=== PATIENT | male | born 1985 | race Two or more races ===

== ENCOUNTER 2020-07-31 21:06 | Emergency (ER) | payer OTHER, SELFPAY ==
--- NOTE | 2020-07-31 | ECG_ITS ---
Test Reason : CHEST PAIN Blood Pressure : / mmHG Vent. Rate : 075 BPM Atrial Rate : 075 BPM P-R Int : 176 ms QRS Dur : 084 ms QT Int : 364 ms P-R-T Axes : 043 032 030 degrees QTc Int : 406 ms Normal sinus rhythm Normal ECG No previous ECGs available Referred By: Emilee Parker Electronically Signed By:BRIJESH ESTRELLA
--- NOTE | ~2020-07-31 | XR_ITS ---
EXAMINATION: XR CHEST CLINICAL INFORMATION: Chest pain COMPARISON: 08/14/2010 TECHNIQUE: Frontal view of the chest was obtained. FINDINGS: No significant abnormality is noted involving the heart, lungs, mediastinum, bony thorax or soft tissues. XR/XR chest 1V IMPRESSION: Unremarkable examination.
[2020-07-31 23:31] VITALS: BP 164/93; PULSE 94; RESP 16; TEMP 36.8; O2SAT 100; BMI 32.5
[2020-08-01] VITALS: BP 125/64; PULSE 75; RESP 12; O2SAT 98
--- NOTE | 2020-08-01 00:18 | ED_ITS ---
HPI - Chest Pain General Chief Complaint: Chest Pain Stated Complaint: chest pain Time Seen by Provider: 08/01/20 00:17 History of Present Illness HPI narrative: 35-year-old male presents today with having chest pain. The pain is mid chest. Started approximately 830. The pain is dull. No specific trigger. It has gone away. Patient denies any history of diabetes, high cholesterol. Positive history of smoking. Positive history of hypertension. Patient from home. Never had a heart attack. Never had a stroke. It is not associated with shortness of breath. No diaphoresis. The pain has gone away. There is no change with position. No stress test done in the past. Related Data Allergies Allergy/AdvReac Type Severity Reaction Status Date / Time No Known Allergies Allergy Unverified 11/04/19 18:10 Review of Systems Review of Systems: Constitutional: No Weight loss, No Fever, No Chills, No Night Sweats, No Fatigue, No Malaise ENT/Mouth: No Hearing loss, No Ear Pain, No Nasal Congestion, No Sinus Pain, No Hoarseness, No sore throat, No Rhinorrhea, No Swallowing Difficulty Eyes: No Eye Pain, No Swelling, No Redness, No Foreign Body, No Discharge, No Vision Changes Cardiovascular: No Chest Pain, No SOB, No Dyspnea on Exertion, No Orthopnea, No Edema, No Palpitations Respiratory: No Cough, No Sputum, No Wheezing, No Smoke Exposure, No Dyspnea Gastrointestinal: No Nausea, No Vomiting, No Diarrhea, No Constipation, No abdominal Pain, No Hematochezia, No Melena Genitourinary: no irregular bleeding, No Dysuria, No Urinary Frequency, No Hematuria, No Urinary Incontinence, No Urgency, No Flank Pain, No Urinary Flow Changes, No Hesitancy Musculoskeletal: No joint pain, No Myalgias, No Joint Swelling Skin: No Skin Lesions, No rash Neuro: No Weakness, No Numbness, No Paresthesias, No Loss of Consciousness, No Dizziness, No Headache Psych: No Anxiety/Panic, No Depression, No SI/HI/AH/VH, No Social Issues, Heme/Lymph: No Bruising, No Bleeding,No Lymphadenopathy Endocrine: No Polyuria, No Polydipsia, No Temperature Intolerance [facility] Past Medical History Attestation statement: The following information was validated with the patient. Social History Social History Alcohol intake: never Smoked in Last 30 Days: No Use of substances other than those prescribed or required for medical reasons: No Advance Directives: No Advance Directives Information Provided: No Physical Exam Vital Signs: Vital Signs: Last Vital Signs Temp 98.3 F 07/31/20 23:31 Pulse 81 08/01/20 02:00 Resp 16 08/01/20 02:00 BP 130/64 08/01/20 02:00 Pulse Ox 97 08/01/20 02:00 Body Mass Index 32.5 Appearance: Alert. Oriented X3. No acute distress. Eyes: Pupils equal, round and reactive to light. ENT: Pharynx normal. Neck: Normal inspection. Neck supple. No lymph nodes noted. No crepitus CVS: Normal heart rate and rhythm. Pulses normal. Normal S1 and S2 Respiratory: No respiratory distress. Breath sounds normal. No Wheezing. No rales Abdomen: Soft and nontender. No rigidity. No distention. good BS x4 Skin: Skin warm and dry. Normal skin color. Normal skin turgor. Extremities: No lower extremity edema. Neurovascular intact to all extremities. No Lacerations. No Rash Neuro: Oriented X 3. No motor deficit. No sensory deficit. Moving all extermities. No slurred speech MDM - Chest Pain MDM Narrative Medical decision making narrative: Chest pain atypical. We will go ahead get a set of cardiac enzymes. Will monitor carefully. Patient's has 2 cardiac risk factor. He is a smoker he has history of hypertension. He is 35 years old. His history is not consistent with ACS. Two sets of cardiac enzyme is negative. Patient's heart score is less than 3. Will discharge patient home. Close follow-up on an outpatient basis. Chest x-ray showed no pneumonia or pneumothorax. Patient history not consistent with a PE. Lab Data Result diagrams: 08/01/20 00:17 08/01/20 00:17 Labs: Lab Results 08/01/20 08/01/20 08/01/20 Range/Units 00:17 00:17 00:17 WBC 7.1 (4.8-10.8) X10*3/uL RBC 4.83 (4.60-5.80) X10*6/uL Hgb 14.7 (14.0-18.0) g/dl Hct 43.4 (42-52) % MCV 89.9 (80-98) fL MCH 30.4 (27.0-33.0) pg MCHC 33.9 (31.0-36.0) g/dl RDW 12.8 (11.0-16.0) % Plt Count 239 (160-400) X10*3/uL MPV 11.1 (9.4-12.4) fL Immature Gran % (Auto) 0.3 (0.0-0.4) % Neut % (Auto) 50.8 (45-73) % Lymph % (Auto) 34.7 (20-40) % Valencia % (Auto) 10.3 (2-11) % Eos % (Auto) 3.8 (0-4) % Baso % (Auto) 0.1 (0-2) % Lymph # (Auto) 2.5 (1.2-4.9) X10*3/uL Valencia # (Auto) 0.7 (0.1-1.2) X10*3/uL Eos # (Auto) 0.3 (0.0-0.4) X10*3/uL Baso # (Auto) 0.0 (0.0-0.2) X10*3/uL Abs Immat Gran (auto) 0.02 (0.00-0.03) X10*3/uL Absolute Neuts (auto) 3.6 (2.0-8.3) X10*3/uL Absolute Nucleated RBC 0.000 (0.0-0.012) X10*3/uL Nucleated RBC % (auto) 0.0 (0.0-0.2) /100WBC Sodium 140 (135-145) mmol/L Potassium 4.3 (3.3-5.1) mmol/L Chloride 105 (96-108) mmol/L Carbon Dioxide 24 (22-29) mmol/L Anion Gap 15 (12-20) BUN 14 (9-16) mg/dL Creatinine 0.76 (0.5-1.4) mg/dL Estim Creat Clear Calc 137.7 Estimated GFR > 60 Random Glucose 101 (60-115) mg/dL Calcium 9.1 (8.4-10.2) mg/dL Total Bilirubin 0.3 (0.0-1.0) mg/dL AST 23 (5-37) U/L ALT 30 (0-40) U/L Alkaline Phosphatase 83 (39-117) U/L Troponin I High Sens < 3.5 (<3.5-35.0) ng/L Total Protein 7.2 (6.5-8.0) g/dL Albumin 4.2 (3.5-5.0) g/dL 08/01/20 Range/Units 02:58 WBC (4.8-10.8) X10*3/uL RBC (4.60-5.80) X10*6/uL Hgb (14.0-18.0) g/dl Hct (42-52) % MCV (80-98) fL MCH (27.0-33.0) pg MCHC (31.0-36.0) g/dl RDW (11.0-16.0) % Plt Count (160-400) X10*3/uL MPV (9.4-12.4) fL Immature Gran % (Auto) (0.0-0.4) % Neut % (Auto) (45-73) % Lymph % (Auto) (20-40) % Valencia % (Auto) (2-11) % Eos % (Auto) (0-4) % Baso % (Auto) (0-2) % Lymph # (Auto) (1.2-4.9) X10*3/uL Valencia # (Auto) (0.1-1.2) X10*3/uL Eos # (Auto) (0.0-0.4) X10*3/uL Baso # (Auto) (0.0-0.2) X10*3/uL Abs Immat Gran (auto) (0.00-0.03) X10*3/uL Absolute Neuts (auto) (2.0-8.3) X10*3/uL Absolute Nucleated RBC (0.0-0.012) X10*3/uL Nucleated RBC % (auto) (0.0-0.2) /100WBC Sodium (135-145) mmol/L Potassium (3.3-5.1) mmol/L Chloride (96-108) mmol/L Carbon Dioxide (22-29) mmol/L Anion Gap (12-20) BUN (9-16) mg/dL Creatinine (0.5-1.4) mg/dL Estim Creat Clear Calc Estimated GFR Random Glucose (60-115) mg/dL Calcium (8.4-10.2) mg/dL Total Bilirubin (0.0-1.0) mg/dL AST (5-37) U/L ALT (0-40) U/L Alkaline Phosphatase (39-117) U/L Troponin I High Sens < 3.5 (<3.5-35.0) ng/L Total Protein (6.5-8.0) g/dL Albumin (3.5-5.0) g/dL Discharge Plan Discharge Clinical Impression: Chest pain Patient Disposition: Home, Self-Care Instructions: Chest Pain (ED) Referrals: Michelle Romo MD [Primary Care Provider] - 2 days
[2020-08-01 00:22] LABS: MANUAL DIFF FLAG NO
[2020-08-01 00:24] LABS: Basophils Percent Auto 0.1 % (0-2); Eosinophils Absolute Auto 0.3 X10*3/uL (0.0-0.4); Eosinophils Percent Auto 3.8 % (0-4); Hematocrit 43.4 % (42-52); Hemoglobin 14.7 g/dl (14.0-18.0); Imm Gran Abs Auto 0.02 X10*3/uL (0.00-0.03); Imm Gran Pct Auto 0.3 % (0.0-0.4); Lymphocytes Absolute Auto 2.5 X10*3/uL (1.2-4.9); Lymphocytes Percent Auto 34.7 % (20-40); Mean Corpuscular HGB Conc 33.9 g/dl (31.0-36.0); Mean Corpuscular Hemoglobin 30.4 pg (27.0-33.0); Mean Corpuscular Volume 89.9 fL (80-98); Mean Platelet Volume 11.1 fL (9.4-12.4); Monocytes Absolute Auto 0.7 X10*3/uL (0.1-1.2); Monocytes Percent Auto 10.3 % (2-11); Neutrophils Absolute Auto 3.6 X10*3/uL (2.0-8.3); Neutrophils Percent Auto 50.8 % (45-73); Platelet Count 239 X10*3/uL (160-400); Red Blood Count 4.83 X10*6/uL (4.60-5.80); Red Cell Distribution Width 12.8 % (11.0-16.0); White Blood Count 7.1 X10*3/uL (4.8-10.8)
[2020-08-01] MEDS: Aspirin 81 MG TAB.CHEW 324 MG PO (00:31)
--- NOTE | 2020-08-01 00:39 | PC.NURSE ---
MEDICATED PER EMAR, X-RAY TAKEN AT BEDSIDE.
[2020-08-01 00:47] LABS: Troponin-I High Sensitivity < 3.5 ng/L (<3.5-35.0)
[2020-08-01 00:53] LABS: Alanine Aminotransferase 30 U/L (0-40); Albumin Level 4.2 g/dL (3.5-5.0); Alkaline Phosphatase 83 U/L (39-117); Anion Gap 15 (12-20); Aspartate Amino Transferase 23 U/L (5-37); Bilirubin Total 0.3 mg/dL (0.0-1.0); Blood Urea Nitrogen 14 mg/dL (9-16); Calcium 9.1 mg/dL (8.4-10.2); Carbon Dioxide 24 mmol/L (22-29); Chloride 105 mmol/L (96-108); Creatinine Clr Calc Pharmacy 137.7; Estimated Glomerular Filt Rate > 60; Glucose Random 101 mg/dL (60-115); Potassium 4.3 mmol/L (3.3-5.1); Sodium 140 mmol/L (135-145); Total Protein 7.2 g/dL (6.5-8.0)
[2020-08-01 02:00] VITALS: BP 130/64; PULSE 81; RESP 16; O2SAT 97
[2020-08-01 03:29] LABS: Troponin-I High Sensitivity < 3.5 ng/L (<3.5-35.0)
== END 2020-08-01 04:22 | disposition home or self-care (01) ==
PROVIDERS: Emergency Provider Emergency Medicine Emergency Medical Services; PCP Internal Medicine
DX: R07.9 Chest pain, unspecified (principal); I10 Essential (primary) hypertension; F17.200 Nicotine dependence, unspecified, uncomplicated
CPT/HCPCS: 36415; 71045; 80053; 84484; 85025; 93005; 99283; 99285

== ENCOUNTER → 2020-09-11 08:47 | Outpatient (REF) | payer OTHER, SELFPAY ==
--- NOTE | 2020-09-11 09:30 | CA_ITS ---
Transthoracic Echocardiogram Patient (Last, First, Middle): Prabhu Young, Gender: Male Date of : 1985 Age: 35 Procedure Date: 09/11/2020 Procedure Type: Transthoracic Echocardiogram Location: OP Height: 165.1 cm Weight: 86.18 kg BSA: 1.94 m2 Heart Rate: bpm BP: 130 / 82 mmHg Referring MD: Michelle Romo MD Symptoms: R07.89 OTHER CHEST PAIN Study Quality: Good ECG Rhythm: Sinus Conclusions: - The left ventricular systolic function is normal. The visually estimated ejection fraction is between 65-70%. - No obvious valvular pathology seen on this study. Findings Left Ventricle Normal left ventricular cavity size. There is normal left ventricular wall thickness. The left ventricular systolic function is normal. The visually estimated ejection fraction is between 65-70%. There is no evidence of regional wall motion abnormalities. Diastolic function is normal for age. Right Ventricle Normal right ventricular cavity size and systolic function. Atria Both atria are normal in size. Aortic Valve There is a normal trileaflet aortic valve. There is no aortic valve stenosis. There is no aortic valve regurgitation. Mitral Valve The mitral valve appears normal. There is trace mitral valve regurgitation. There is no mitral valve stenosis. Pulmonic Valve The pulmonic valve was not well visualized. There is trace pulmonic valve regurgitation. Tricuspid Valve Normal tricuspid valve structure. There is trace tricuspid valve regurgitation. The pulmonary artery systolic pressure is normal. Great Vessels The aortic annulus, sinuses of valsalva, asc aorta, and aortic arch are normal in size. Venous The inferior vena cava is normal in size and collapses greater than 50% with inspiration. Pericardium/Pleural There is no evidence of pericardial effusion. Prior Study Comparison No prior study available for comparison. Recommendations, Care & Conclusions No obvious valvular pathology seen on this study. Measurements 2D Linear Measurements RVIDd: 2.78 RVIDd Index: 1.43 IVSd: 1.05 0.6-0.9/0.6-1.0 cm LVIDd: 5.29 3.9-5.3/4.2-5.9 cm LVIDd Index: 2.73 2.4-3.2/2.2-3.1 cm/m2 LVIDs: 2.82 2.0-3.6 cm LVPWd: 1.00 0.7-1.1 cm Ao Root: 2.60 2.1-3.5 cm LA Diam: 3.50 2.7-3.8/3.0-4.0 cm LAIDs Index: 1.80 1.5-2.3 cm/m2 LV Mass: 257.31 67-162/88-224 g LV Mass Index: 132.63 43-95/49-115 g/m2 LVOT Diam: 2.30 3.0+(-)1.3 cm 2D Systolic Function EF 4C: 58.50 >55% EF 2C: 71.90 >55% EF BiP: 65.10 >55% Mitral Valve MV Pk E: 0.71 MV PK A: 0.51 MV Decel Time: 164.00 E/A: 1.40 E'Lateral: 9.46 E'Medial: 9.03 E/E' Med: 7.80 E/E' Lat: 7.50 Aortic Valve AoV Pk Nic: 1.71 AoV Mn Nic: 1.24 AoV VTI: 0.25 AoV Pk Grad: 12.00 Aov Mn Grad: 7.00 MOHIT Cont.VTI: 3.73 LVOT LVOT Pk Nic: 1.56 LVOT Mn Nic: 1.07 LVOT VTI: 0.22 LVOT Pk Grad: 10.00 LVOT Mn Grad: 5.00 LVOT Diam: 2.30 LVOT Area: 4.15 Diastolic Function MV Pk E: 0.71 MV Pk A: 0.51 E/A: 1.40 E'Medial: 9.03 E/E' Med: 7.80 E' Laterial: 9.46 E/E' Lat: 7.50 Right Ventricle TAPSE (mm): 2.14 Tricuspid Valve TR Pk Nic: 2.20 TR Pk Grad: 19.00 RA Press: 3.00 RVSP: 22.00 Great Vessels Aorta Ao Root-2D: 2.60 2.0-3.7 cm Ao Asc: 2.90 2.1-3.4 cm Ao Arch: 2.50 Updated in Other Vendor System with Status of Final Anastacio Nunn MD electronically signed on 09/11/2020 12:51:59 PM with status of Final
== END ==
LOC: HO.CARD 08:47
PROVIDERS: Visit Provider Internal Medicine
DX: R07.89 Other chest pain (principal)
CPT/HCPCS: 93306

== ENCOUNTER 2021-05-14 09:43 | Outpatient (REF) | payer OTHER, SELFPAY ==
--- NOTE | ~2021-05-14 | XR_ITS ---
EXAMINATION: XR CHEST CLINICAL INFORMATION: Chest pain COMPARISON: Previous exam July 2020 TECHNIQUE: 2 views of the chest were obtained. FINDINGS: The cardiac and mediastinal contours are normal. There is a 7 mm nodule projects over the right upper lobe and posterior right 6 rib. This is similar to March 2019 exam. This is not appreciated on the other exams. It is uncertain whether this represents a pulmonary nodule could represent something on the patient's skin or in sclerotic lesion in the bone. The lungs are otherwise clear. There is no pleural effusion or pneumothorax. Bony structures are unremarkable. XR/XR chest 2V IMPRESSION: Question 7 mm right upper lobe nodule. This could be better evaluated with follow-up chest CT.
== END 2021-05-14 09:44 | disposition home or self-care (01) ==
LOC: HO.XRAY 09:43
PROVIDERS: Absent Provider Internal Medicine; PCP Internal Medicine; Visit Provider Family Medicine
DX: R07.89 Other chest pain (principal)
CPT/HCPCS: 71046

== ENCOUNTER 2021-05-29 07:30 | Outpatient (REF) | payer OTHER, SELFPAY ==
--- NOTE | ~2021-05-29 | CT_ITS ---
EXAMINATION: CT CHEST WITH CONTRAST CLINICAL INFORMATION: 36-year-old male with solitary pulmonary nodule COMPARISON: Chest radiograph from 05/14/2021 TECHNIQUE: Multidetector volumetric CT imaging of the chest was obtained after the administration of 65 mL of Omnipaque 350 intravenous contrast without immediate adverse reactions. Axial MIP volume rendering provided. Sagittal and coronal reformatted images were obtained. This CT examination was performed using dose optimization techniques as appropriate, variously including the following: *Automated exposure control *Adjustment of mA and/or kV according to patient size (this includes techniques or standardized protocols for targeted exams where dose is matched to indication/reason for exam; i.e. extremities or head) *Use of iterative reconstruction technique DLP: 151 mGy-cm FINDINGS: HEAD GROWER: There is right upper lobe nodule seen LUNGS: There is 0.7 x 0.7 x 0.7 cm heavily calcified right upper lobe nodule consistent with the appearance of calcified granuloma. The rest of lungs are clear. MEDIASTINUM: There is small amount of residual thymic tissue is, normal variant. There is no mediastinal or hilar lymphadenopathy. There is small calcified nodules measured approximately 2 mm in the right hilum Heart is not enlarged and there is no pericardial effusion PLEURA: There is no pleural effusion. No pleural mass or thickening. AXILLA: No lymphadenopathy. UPPER ABDOMEN: Liver is of low attenuation due to hepatic steatosis. The area of fatty sparing adjacent to the gallbladder fossa. OSSEOUS STRUCTURES: Unremarkable. 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 Hepatic steatosis Fleischner guidelines were followed.
[2021-05-29] MEDS: iohexoL 350 MG/ML 100 ML INFUS..BTL IV (08:14)
== END 2021-05-29 07:31 | disposition home or self-care (01) ==
LOC: HO.CT 07:30
PROVIDERS: PCP Internal Medicine; Visit Provider Family Medicine
DX: R91.1 Solitary pulmonary nodule (principal)
CPT/HCPCS: 71260; Q9967

== ENCOUNTER 2021-07-12 10:19 | Outpatient (REF) | payer OTHER, SELFPAY ==
[2021-07-12 11:44] LABS: MANUAL DIFF FLAG NO
[2021-07-12 12:07] LABS: Basophils Percent Auto 0.1 % (0-2); Eosinophils Absolute Auto 0.1 X10*3/uL (0.0-0.4); Eosinophils Percent Auto 1.1 % (0-4); Hematocrit 46.2 % (42.0-52.0); Hemoglobin 15.7 g/dl (14.0-18.0); Imm Gran Abs Auto 0.04 X10*3/uL (0.00-0.03); Imm Gran Pct Auto 0.5 % (0.0-0.4); Lymphocytes Absolute Auto 1.4 X10*3/uL (1.2-4.9); Lymphocytes Percent Auto 18.6 % (20-40); Mean Corpuscular Hemoglobin 30.3 pg (27.0-33.0); Mean Platelet Volume 11.5 fL (9.4-12.4); Monocytes Absolute Auto 0.5 X10*3/uL (0.1-1.2); Monocytes Percent Auto 6.8 % (2-11); Neutrophils Absolute Auto 5.3 x10*3/uL (2.0-8.3); Neutrophils Percent Auto 72.9 % (45-73); Platelet Count 252 X10*3/uL (160-400); Red Blood Count 5.19 X10*6/uL (4.60-5.80); Red Cell Distribution Width 12.3 % (11.0-16.0); White Blood Count 7.3 X10*3/uL (4.8-10.8)
[2021-07-12 12:48] LABS: Erythrocyte Sedimentation Rate 6 MM/HR (0-15)
[2021-07-14 15:07] LABS: TS Negative Control Passed; TS Panel A 0; TS Panel B 0; TS Positive Control Passed; TSpotTB Negative (Negative)
== END 2021-07-12 10:20 | disposition home or self-care (01) ==
LOC: HO.LAB 10:19
PROVIDERS: PCP Internal Medicine; Visit Provider Hospitalist
DX: Z11.1 Encounter for screening for respiratory tuberculosis (principal); R91.1 Solitary pulmonary nodule; J45.20 Mild intermittent asthma, uncomplicated; R01.1 Cardiac murmur, unspecified
CPT/HCPCS: 36415; 85025; 85652; 86481; 99202

== ENCOUNTER → 2022-01-03 09:40 | Outpatient (BNVA) | payer OTHER, SELFPAY | PROVIDERS: PCP Internal Medicine; Visit Provider Hospitalist | DX: J45.20 Mild intermittent asthma, uncomplicated (principal); R91.1 Solitary pulmonary nodule | CPT/HCPCS: 99212 ==

== ENCOUNTER 2022-09-18 09:28 | Outpatient (AMB) | payer OTHER, SELFPAY ==
[2022-09-18 09:39] VITALS: BP 144/80; PULSE 80; BMI 34.4
--- NOTE | 2022-09-18 09:39 | A.OFFVIS_ITS ---
Intake Vital Signs 09/18/22 09:39 Height 5 ft 5 in Weight 207 lb BMI 34.4 BP 144/80 H Blood Pressure Location Rt brachial Position Sitting Pulse 80 Intake Visit Reasons: umbilical hernia Intake Note: This patient presents for an assessment for umbilical hernia. Patient c/o; describes discomfort when lifting, bulge, denies pain. 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 He has felt this lump on his umbilicus for about 4 months now. He says that this had become bigger. 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 He denies any GI complaints. [facility] Medical History (Updated 09/18/22 @ 10:09 by Oliverio Hoover MD) Asthma BMI 34.0-34.9,adult Cardiac murmur Pulmonary nodule Umbilical hernia Surgical History (Updated 09/18/22 @ 09:57 by BISHOP Medina) No pertinent past surgical history Family History (Updated 09/18/22 @ 09:57 by BISHOP Medina) Other Ovarian cancer Throat cancer Social History Alcohol intake: never Patient Tobacco Use Status: Former Tobacco user Tobacco use type: Cigarette Years Smoked: 20 years Review of Systems Const Denies chills and Denies fever(s) Card Denies chest pain, Denies dyspnea and Denies dyspnea on exertion Resp Denies cough, Denies dyspnea and Denies dyspnea on exertion GI Denies hematochezia and Denies change in bowel habits Denies hematuria and Denies difficulty urinating Musc Denies back pain and Denies limited range of motion Neuro Denies focal weakness and Denies convulsions Psych Denies depression and Denies mood swings Physical Exam Vital Signs: Last Vital Signs Pulse 80 09/18/22 09:39 BP 144/80 H 09/18/22 09:39 BMI result Body Mass Index 34.4 Const Other: Appears overweight General: comfortable and no acute distress Orientation/consciousness: patient oriented x3 Neck Neck: Yes no lymphadenopathy Resp Auscultation: clear to auscultation bilaterally Cardio Rhythm: regular rhythm GI Other: Umbilical hernia, about 2 cm, reducible but mildly tender Palpation (GI): Soft to palpation, nontender and no guarding Neuro General: patient oriented x3 Assessment & Plan Assessment & Plan (1) Umbilical hernia: Code(s): K42.9 - Umbilical hernia without obstruction or gangrene Plan: He has an umbilical hernia as described above. He describes symptoms as well. I explained him the technique of repair with possible mesh placement. I reviewed the risks including but not limited to bleeding, infections, bowel injury, recurrence, postop pain, as well as the benefits and alternatives. He understands and wants to proceed. Coding Level of Care Code New Pt Level 3 (60969) Diagnoses Umbilical hernia K42.9
== END 2022-09-18 10:19 | disposition home or self-care (01) ==
PROVIDERS: PCP Internal Medicine; Visit Provider Surgery
DX: K42.9 Umbilical hernia without obstruction or gangrene (principal)
CPT/HCPCS: 99203

== ENCOUNTER → 2022-09-18 09:28 | Outpatient (BNVA) | payer OTHER, SELFPAY | PROVIDERS: PCP Internal Medicine; Visit Provider Surgery ==

== ENCOUNTER 2022-10-11 08:24 | Day surgery (SDC) | payer OTHER, SELFPAY ==
[2022-10-09 12:50] VITALS: BMI 33.4
--- NOTE | 2022-10-10 11:51 | HO.ANESPROP2 ---
Documented by User: Loan Ahuja NP 10/10/22 11:53 HPI - Anesthesia Eval Consult details Narrative: 37yo M for Hernia Repair Umbilical with poss mesh PMFSH Active Problems Active Problems: All Active Problems (Updated 09/18/22 @ 10:09 by Oliverio Hoover MD) Umbilical hernia (Acute) BMI 34.0-34.9,adult (Acute) Cardiac murmur (Acute) Asthma (Acute) Pulmonary nodule (Acute) Past Medical History Medical History (Updated 09/18/22 @ 10:09 by Oliverio Hoover MD) Asthma BMI 34.0-34.9,adult Cardiac murmur Pulmonary nodule Umbilical hernia Family History Family History (Updated 09/18/22 @ 09:57 by BISHOP Medina) Other Ovarian cancer Throat cancer Surgical History Surgical History (Updated 09/18/22 @ 09:57 by BISHOP Medina) No pertinent past surgical history Social History Social History Alcohol intake: never Patient Tobacco Use Status: Former Tobacco user Tobacco use type: Cigarette Years Smoked: 20 years Are you DNR?: No Advance Directives: No Advance Directives Information Provided: Yes Meds Allergies Allergy/AdvReac Type Severity Reaction Status Date / Time No Known Allergies Allergy Unverified 09/18/22 09:56 [No Known Allergies*] Home Medications Medication Instructions Recorded Confirmed Last Taken Type amlodipine 10 mg tablet 10 mg PO DAILY 07/12/21 10/09/22 Unknown History hydrochlorothiazide 25 mg tablet 25 mg PO DAILY 07/12/21 10/09/22 Unknown History losartan 50 mg tablet 50 mg PO DAILY 07/12/21 10/09/22 Unknown History Exam Exam Date and Time: October 10, 2022 1151 Height,Weight and Vital Signs: Height 5 ft 5 in Weight 91.172 kg Narrative Narrative: ECHO 2020 Assessment and Plan Assessment Anesthesia Assessment: Chart Reviewed Documented by User: Lion Hilario MD 10/11/22 11:30 [facility] Past Medical History Medical History (Updated 09/18/22 @ 10:09 by Oliverio Hoover MD) Asthma BMI 34.0-34.9,adult Cardiac murmur Pulmonary nodule Umbilical hernia Family History Family History (Updated 09/18/22 @ 09:57 by BISHOP Medina) Other Ovarian cancer Throat cancer Family history of problems with anesthesia: No Surgical History Surgical History (Updated 09/18/22 @ 09:57 by BISHOP Medina) No pertinent past surgical history History of Problems with Anesthesia: No Social History Social History Alcohol intake: never Patient Tobacco Use Status: Former Tobacco user Tobacco use type: Cigarette Years Smoked: 20 years Are you DNR?: No Advance Directives: No Advance Directives Information Provided: Yes Meds Allergies Allergy/AdvReac Type Severity Reaction Status Date / Time No Known Allergies Allergy Unverified 09/18/22 09:56 [No Known Allergies*] Home Medications Medication Instructions Recorded Confirmed Last Taken Type amlodipine 10 mg tablet 10 mg PO DAILY 07/12/21 10/09/22 Unknown History hydrochlorothiazide 25 mg tablet 25 mg PO DAILY 07/12/21 10/09/22 Unknown History losartan 50 mg tablet 50 mg PO DAILY 07/12/21 10/09/22 Unknown History Exam Airway Mallampati Class: I TM Dist: >3cm Neck ROM: Full Loose/Missing/Broken Teeth: No Heart: ok Lungs: ok Assessment and Plan Assessment Anesthesia Assessment: Anesthesia Plan Discussed Final Anesthetic Review Family History of Problems with Anesthesia: No History of Problems with Anesthesia: No NPO: Yes ASA Class: II Final Preanesthetic Review: No Changes in Pt Med Stat, Meds/Allgs Chart Reviewed, Consent Obtained/Reviewed and Anes Risks/Benef Reviewed Patient Risk: Low Procedure Risk: Low Anesthetic Plan Anesthetic Plan: GA and Agree w/ Assess. and Plan Disposition: Standard PACU
[2022-10-11 09:20] VITALS: BP 149/84; PULSE 80; RESP 20; TEMP 36.6; O2SAT 98
[2022-10-11] MEDS: Lactated Ringers 1,000 ML 100 ML IVCONT (09:27)
--- NOTE | 2022-10-11 10:39 | MHC.SHP ---
Pre-Procedural Eval Section A Date of Service: 10/11/22 The patient is an INPATIENT: No Changes since office visit: No Cold of Flu in the past 2 weeks, No New Medical Problems, No Changes in Medication and No Patient answered all questions The History & Physical has been completed within 30 days and I have reviewed it.: Yes Section B Chief Complaint: Umbilical hernia without obstruction or gangrene Allergies: Allergies Allergy/AdvReac Type Severity Reaction Status Date / Time No Known Allergies Allergy Unverified 09/18/22 09:56 [No Known Allergies*] Plan I have reviewed the history and physical and performed a pertinent physical examination on my patient. No changes have occurred unless specified. Time Spent With Patient Time: Total time managing care of this patient today ____ minutes.
--- NOTE | 2022-10-11 11:32 | P.OP_ITS ---
Operative Note Operative Note Date of Service: 10/11/22 Narrative: Preop diagnosis: Umbilical hernia Postop diagnosis: Umbilical hernia Procedure: Repair of umbilical hernia with Ventralex mesh Surgeon: Oliverio Hoover MD restaurant assistant manager: IKE Glass Patient is a 37-year-old male who was seen in the office because of a small umbilical hernia. He understood the technique of repair. He was aware of the risks, benefits, and alternatives He was brought to the operating room. He was placed supine under general anesthesia via laryngeal mask airway. The abdomen was prepped and draped in this was sterile fashion. A surgical time-out was done. The patient received cefazolin 2 g IV preoperatively I infiltrated the finesse umbilical area with lidocaine 1%. I made a transverse supraumbilical curvilinear incision using blade 15. And this was carried down with electrocautery through the full-thickness of the skin subcutaneous fat he will eventually lysed hernia. This was fat containing. I sharply dissected the hernia contents off of the rest of subcutaneous layer down to the fascia. I divided adhesions to the fascia until I was able to completely reduce this hernia. The hernia defect was about 1 cm in size. This defect was dissected and well-defined. The margins underneath were clear. I positioned a small- sized Ventralex mesh underneath the hernia. I secured the Prolene straps of the mesh to the fascial edges with Prolene 2 sutures. The mesh had been flattened with good overlap. I closed the umbilical defect with a [id number] Maxon 1 stitch on the fascia. The subcutaneous layer was reapposed with Polysorb 3-0 interrupted sutures. Closure was achieved with pulse of 4-0 subcuticular running sutures. The area was infiltrated with Marcaine 0.5% for postop PARAG. Dressings were applied. The procedure was completed The patient tolerated procedure well. There were no immediate complications. Initial and final counts sponges and instruments were correct. Estimated blood loss about 5 cc The patient was extubated without difficulty and transferred to the recovery with stable vital signs.
[2022-10-11 11:53] VITALS: BP 131/78; PULSE 92; RESP 14; TEMP 36.3; O2SAT 93
[2022-10-11 11:58] VITALS: BP 135/75; PULSE 77; RESP 16; O2SAT 94
[2022-10-11 12:03] VITALS: BP 126/83; PULSE 81; RESP 16; O2SAT 96
[2022-10-11 12:08] VITALS: BP 116/79; PULSE 73; RESP 16; O2SAT 96
[2022-10-11 12:23] VITALS: BP 127/88; PULSE 81; RESP 16; TEMP 36.4; O2SAT 96
== END 2022-10-11 12:50 | disposition home or self-care (01) ==
PROVIDERS: PCP Internal Medicine; Visit Provider Surgery
PROC: (CPT 49591; principal; 2022-10-11 10:50)
DX: K42.9 Umbilical hernia without obstruction or gangrene (principal); R91.1 Solitary pulmonary nodule; R01.1 Cardiac murmur, unspecified; J45.909 Unspecified asthma, uncomplicated; Z79.899 Other long term (current) drug therapy; Z87.891 Personal history of nicotine dependence
CPT/HCPCS: 49591; C1781; J0690; J1885; J2250; J2405; J2795; J3010

== ENCOUNTER → 2022-10-11 08:24 | Outpatient (BNV) | payer OTHER, SELFPAY | PROVIDERS: PCP Internal Medicine; Visit Provider Surgery | DX: K42.9 Umbilical hernia without obstruction or gangrene (principal) | CPT/HCPCS: 49591 ==

== ENCOUNTER 2022-10-28 08:01 | Outpatient (AMB) | payer SELFPAY ==
--- NOTE | 2022-10-28 08:06 | MHC.OFFVIS ---
Intake Vital Signs 10/28/22 08:13 Weight 206 lb BP 135/90 H Blood Pressure Location Rt brachial Position Sitting Pulse 79 Intake Visit Reasons: S/P Exc umbilical hernia w/ poss mesh Intake Note: This patient presents for a post-op assessment status post umbilical hernia repair with mesh. Patient c/o; reports no complaints at this time pertaining to surgery. Nursing Scheduler Required: No Accompanied by: Self / Same As Patient Allergies No Known Allergies [No Known Allergies*] Allergy (Unverified 10/28/22 08:14) HPI S/P Exc umbilical hernia w/ poss mesh HPI Details He underwent repair of an umbilical hernia with mesh last 10/11/2022. He tolerated the procedure well. He currently denies significant complaints. He says he feels well overall. [facility] Medical History Umbilical hernia BMI 34.0-34.9,adult Cardiac murmur Asthma Pulmonary nodule Surgical History History of umbilical hernia repair (~10/11/22) Family History Other Ovarian cancer Throat cancer Social History Alcohol intake: never Patient Tobacco Use Status: Former Tobacco user Tobacco use type: Cigarette Years Smoked: 20 years Review of Systems Const Denies chills and Denies fever(s) Card Denies chest pain, Denies dyspnea and Denies dyspnea on exertion Resp Denies cough, Denies dyspnea and Denies dyspnea on exertion GI Denies hematochezia and Denies change in bowel habits Denies hematuria and Denies difficulty urinating Musc Denies back pain and Denies limited range of motion Neuro Denies focal weakness and Denies convulsions Psych Denies depression and Denies mood swings Physical Exam Vital Signs: Last Vital Signs Pulse 79 10/28/22 08:13 BP 135/90 H 10/28/22 08:13 Const General: comfortable and no acute distress Resp Effort & Inspection: normal respiratory effort GI Other: Incision well healed, not infected, repair intact Palpation (GI): Soft to palpation and nontender Assessment & Plan Assessment & Plan (1) Umbilical hernia: Code(s): K42.9 - Umbilical hernia without obstruction or gangrene Plan: Status post repair with mesh. He is doing very well postoperatively. The repair site is intact. His incision is well healed. He was advised to avoid any lifting more than 20 lb for about 2 more weeks. He can follow up on a p.r.n. basis. Coding Level of Care Code Global (87494) Diagnoses Umbilical hernia K42.9
[2022-10-28 08:13] VITALS: BP 135/90; PULSE 79
== END 2022-10-28 08:33 | disposition home or self-care (01) ==
PROVIDERS: PCP Internal Medicine; Visit Provider Surgery
DX: K42.9 Umbilical hernia without obstruction or gangrene (principal)
CPT/HCPCS: 99213

== ENCOUNTER → 2022-10-28 08:01 | Outpatient (BNVA) | payer OTHER, SELFPAY | PROVIDERS: PCP Internal Medicine; Visit Provider Surgery ==

== ENCOUNTER 2025-01-07 08:27 | Outpatient (REF) | payer SELFPAY ==
--- OUTSIDE RECORDS SUMMARY | 2025-01-07 08:30 | XMS_ITS | Encounter Summary ---
Author Organization [employer] Address [address] [place] [address] [address] [address] Care Team Providers Care Java Web User Interface Developer Name Role Phone Michelle Romo MD Primary Care Provider [phone]- [phone] Reason for Visit * Reason Onset Date Comments Reschedule 08/12/2022 Encounter Details Date Type Department Care Team ([facility] st Contact Info) Description 08/12/2022 Telephone [facility] MED & PEDS [address] [place] [address] Michelle Romo MD [address] [place] [address] Reschedule Social History Tobacco Use Types Packs/Day Years Used Date Smoking Tobacco: Never Passive Smoke Exposure: Never Smokeless Tobacco: Never Sex and Gender Information Value Date Recorded Sex Assigned at Male 12/17/2021 10:21 AM EDT Legal Sex Male 10:21 AM EDT Gender Identity Male 12/17/2021 10:21 AM EDT Sexual Orientation Straight 12/17/2021 10 :21 AM EDT documented as of this encounter Miscellaneous Notes * Telephone Encounter - Macey Martin - 08/12/2022 2:43 PM EDT Tc from pt spouse requesting to r/s 08/13/22 appointment. Lead Customer Service Representative checked schedule, no availability Please contact pt at [phone] ([place] speaker) documented in this encounter Plan of Treatment Not on file documented as of this encounter Visit Diagnoses Not on filedocumented in this encounter Care Teams Java Web User Interface Developer Relationship Specialty Start Date End Date Michelle Romo MD [address] [place] [id number] PCP - General Internal Medicine 02/17/18 documented as of this encounter
--- OUTSIDE RECORDS SUMMARY | 2025-01-07 08:30 | XMS_ITS | Encounter Summary ---
Author Organization [employer] Address [address] [place] [address] [address] [address] Care Team Providers Care Diving Fisher Name Role Phone Michelle Romo MD Primary Care Provider [phone]- [phone] Reason for Visit * Reason Comments Med Refill Encounter Details Date Type Department Care Team (Late st Contact Info) Description 11/07/2023 Refill [facility] CHC MED & PEDS [address] [place] [address] Michelle Romo MD [address] [place] [address] Essential (primary) hypertension Social History Tobacco Use Types Packs/Day Years Used Date Smoking Tobacco: Never Passive Smoke Exposure: Never Smokeless Tobacco: Never Sex and Gender Information Value Date Recorded Sex Assigned at Male 12/17/2021 10:21 AM EDT Legal Sex Male 10:21 AM EDT Gender Identity Male 12/17/2021 10:21 AM EDT Sexual Orientation Straight 12/17/2021 10 :21 AM EDT documented as of this encounter Plan of Treatment Not on file documented as of this encounter Visit Diagnoses Diagnosis Essential (primary) hypertension Unspecified essential hypertension documented in this encounter Care Teams Diving Fisher Relationship Specialty Start Date End Date Michelle Romo MD [address] [place] [address] PCP - General Internal Medicine 02/17/18 documented as of this encounter
--- OUTSIDE RECORDS SUMMARY | 2025-01-07 08:30 | XMS_ITS | Clinical Summary ---
Author Organization [employer] Address [address] [facility] [address] [place] [address] Care Team Providers Care Crane Service Technician Name Role Phone Michelle Romo MD Primary Care Provider Allergies No known active allergies Medications losartan (Cozaar) 50 MG tablet TAKE 1 TABLET BY MOUTH EVERY DAY IN THE MORNING 90 tablet 1 5 Active amLODIPine (Norvasc) 10 MG tabletIndications :Essential (primary) hypertension Take 1 tablet (10 mg) by mouth Once per day. 90 tablet 1 5 Active hydroCHLOROthiazi de (HYDRODiuril) 25 MG tabletIndications :Essential (primary) hypertension Take 1 tablet (25 mg) by mouth Once per day. 90 tablet 5 Active nicotine (Nicoderm CQ) 7 MG/24HR patchIndications: Smoking addiction Place 1 patch on the skin 1 (one) time each day at the same time. 30 patch 5 Active Active Problems Problem Noted Date Diagnosed Date Primary hypertension 06/27/2022 Umbilical hernia without obstruction and without gangrene 06/27/2022 Encounters Date Type Department Care Team Description 12/07/2024 9:15 AM EDT Office Visit [facility] MED & PEDS [address] [place] [address] Michelle Romo MD Skin tag (Primary Dx) 12/07/2024 Travel 11/30/2024 Travel 10/20/2024 3:30 PM EDT Office Visit [facility] MED & PEDS [address] [place] [address] Michelle Romo MD Smoking addiction (Primary Dx); Essential (primary) hypertension; Skin tag; Dietary counseling; Exercise counseling; Class 1 obesity due to excess calories with serious comorbidity and body mass index (BMI) of 34.0 to 34.9 in adult; 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 purified surface antigen ) 02/22/2013 TD (adult), 2 Lf tetanus tox oid, preservative free, adsorbed 10/25/2018 Tdap 02/22/2013 Social History Tobacco Use Types Packs/Day Years Used Date Smoking Tobacco: Every Day Cigarettes Passive Smoke Exposure: Never Smokeless Tobacco: Never Tobacco Cessation:Ready to Q uit: Not Asked; Counseling Given: Yes Comments:Smokes 5 cig a day since the age of [age] years old ( for 25 years). Alcohol Answer Date Recorded How often do you have a drink containing alcohol ? 1 10/20/2024 How many drinks containing a lcohol do you have on a typical day when you are drinking? 0 10/20/2024 How often do you have six or more drinks on one occasion? 0 10/20/2024 Depression Answer Date Recorded Patient Health Questionnaire-9 Score 0 10/20/2024 Patient Health Questionnaire-9 Score 0 10/20/2024 Last PHQ-9: Questionnaire Data Not on file 0 10/20/2024 Housing Stability Answer Date Recorded What is your housing situation today? I have david mackenzie 10/12/[address] you li ve. Do you have problems with any of the following? None of the above 10/12/2024 Food Insecurity Answer Date Recorded Within the past 12 months, y ou worried that your food would run out before you got money to buy more: Never True 10/12/2024 Within the past 12 months,th e food you bought just didn't last and you didn't have enough money to get more: Never True Transportation Answer Date Recorded In the past 12 months, has l ack of transportation kept you from medical appts, meetings, work or from getting things needed for daily living? No 10/12/2024 Utilities Answer Date Recorded In the past 12 months, has t he electric, gas, oil or water company threatened to shut off services in your home? No 10/12/2024 Depression Answer Date Recorded Patient Health Questionnaire-2 Score 0 10/20/2024 Internet Access Answer Date Recorded Internet Access Q1 Yes 10/12/2024 Internet Access Q2 Not on file 10/12/2024 Sex and Gender Information Value Date Recorded Sex Assigned at Male 12/17/2021 10:21 AM EDT Legal Sex Male 10:21 AM EDT Gender Identity Male 12/17/2021 10:21 AM EDT Sexual Orientation Straight 12/17/2021 10 :21 AM EDT Last Filed Vital Signs Vital Sign Reading Time Taken Comments Blood Pressure 140/89 12/07/2024 9:23 AM EDT Pulse 80 12/07/2024 9:23 AM EDT Temperature 36.4 C (97.5 F) 10/20/2024 3:11 PM EDT Respiratory Rate 20 12/07/2024 9:23 AM EDT Oxygen Saturation 98% 12/07/2024 9:23 AM EDT Inhaled Oxygen Concentration - - Weight 91.2 kg (201 lb) 12/07/2024 9:23 AM EDT Height 165.1 cm (5' 5 ) 12/07/2024 9:23 AM EDT Body Mass Index 33.45 12/07/2024 9:23 AM EDT Plan of Treatment Health Maintenance Due Date Last Done Comments HIV Screening 1985 Family Planning (PISQ) 01/15/1999 HPV Vaccines (1 - Male 3-dos e series) 01/15/1999 Hepatitis C Screening 01/15/2002 Hepatitis B Vaccines (1 of 3 - 19+ 3-dose series) 01/15/2003 Pneumococcal Vaccine: Pediatrics (0 to 5 Years) and At-Risk Patients (6 to 49) Years (1 of 2 - PCV) 01/15/2003 COVID-19 Vaccine (3 - 2024-2 6 season) 2024 04/11/2021, 05/30/2020 Influenza Vaccine (#1) 2024 02/22/2013 SDOH Screening 10/12/2025 10/12/2024 Disability Screening 10/19/2025 10/19/2024 Alcohol/Substance Use Screening 10/20/2025 10/20/2024 Depression Screening 10/20/2025 10/20/2024, 10/20/2024 Tobacco Screening 12/07/2025 12/07/2024 Lipid Panel 06/11/2026 06/11/2021 DTaP/Tdap/Td Vaccines (3 - T d or Tdap) 10/25/2028 10/25/2018, 02/22/2013 Zoster Vaccines (1 of 2) 01/15/2034 RSV Patients and Patients Aged 60 years or older (1 - 1-dose 75+ series) 01/15/2059 HIB Vaccines Aged Out No longer eligi ble based on patient's age to complete this topic Hepatitis A Vaccines Aged Out No long er eligible based on patient's age to complete this topic IPV Vaccines Aged Out No longer eligi ble based on patient's age to complete this topic Meningococcal B Vaccine Aged Out No l onger eligible based on patient's age to complete this topic Meningococcal Vaccine Aged Out No bessy caesar eligible based on patient's age to complete this topic RSV under 20 months Aged Out No longe r eligible based on patient's age to complete this topic Rotavirus Vaccines Aged Out No longer eligible based on patient's age to complete this topic Procedures Procedure Name Priority Date/Time Associated Diagnosis Comments DESTRUCTION OF LESION Routine 12/07/2024 12:46 PM EDT Skin tag LIPID PANEL, STANDARD Routine 06/11/2021 8:39 AM EDT from Last 3 Months or Most Recently Relevant to Health Maintenance Results * Destruction of lesion (12/07/2024 12:46 PM EDT) Michelle Mccabe MD - 12/07/2024 12:46 PM EDT Michelle Romo MD 12/07/2024 1:00 PM Destruction of lesion Date/Time: 12/07/2024 12:46 PM Performed by: Michelle Romo MD Authorized by: Michelle Romo MD Consent: Consent obtained: Verbal and written Risks discussed: Bleeding, infection, pain and poor cosmetic result Alternatives discussed: Observation Palatine protocol: Procedure explained and questions answered to patient or proxy's satisfaction: yes Relevant documents present and verified: no Test results available: no Imaging studies available: no Required blood products, implants, devices, and special equipment available: no Site/side marked: no Immediately prior to procedure, a time out was called: yes Number of Lesions: 2 Lesion 1: Body area: lower extremity Lower extremity location: left thigh. Initial size (mm): 10 Final defect size (mm): 10 Malignancy: benign lesion Destruction method: scissors used for extraction Lesion 2: Body area: head/neck Head/neck location: neck Initial size (mm): 2 Final defect size (mm): 2 Malignancy: benign lesion Destruction method: scissors used for extraction Comments: 1) left inner thigh: Skin cleansed with alcohol. 0.5 mL lidocaine 1% without epinephrine injected. Scissor extraction performed. Band-Aid applied after. 2) a similar lesion of the neck was removed. Same procedure as noted above. Patient is to cleanse the area with hydrogen peroxide. Lidocaine, lot [id number], expiratory date . us Michelle Romo MD DERM PROCEDURE ORDERABLES F inal Result * (ABNORMAL) LIPID PANEL, STANDARD (06/11/2021 8:39 AM EDT) Chol/HDLC Ratio 4.0 <5.0 (calc) [facility] Cholesterol, Total 175 <200 mg/dL [facility] HDL Cholesterol 44 > OR = 40 mg/dL [facility] LDL Cholesterol 98 mg/dL (calc) [facility] Comment: Reference range: <100 Desirable range <100 mg/dL for primary prevention; <70 mg/dL for patients with CHD or diabetic patients with > or = 2 CHD risk factors. LDL-C is now calculated using the Homa calculation, which is a validated novel method providing better accuracy than the Friedewald equation in the estimation of LDL-C. Andi ZARATE et al. RIVAS. 2013;310(19): 0867-5753 (http://education.[employer].com/faq/CBI076) Non-HDL Cholesterol 131(H) <130 mg/dL (calc) [facility] Comment: For patients with diabetes plus 1 major ASCVD risk factor, treating to a non-HDL-C goal of <100 mg/dL (LDL-C of <70 mg/dL) is considered a therapeutic option. Triglycerides 210(H) <150 mg/dL [facility] Comment: If a non-fasting specimen was collected, consider repeat triglyceride testing on a fasting specimen if clinically indicated. Dee et al. J. of Clin. Lipidol. 2015;9:129-169. 06/11/2021 8:39 AM EDT us Criss Rios MD LAB BLOOD ORDERABLES Final Re sult [facility] [address] from Last 3 Months or Most Recently Relevant to Health Maintenance Insurance [facility] * Guarantor: Prabhu Charles Account Type Relation to Patient Date of Phone Billing Address Personal/Family Self [address] [place] [address] * Guarantor: Prabhu Charles Account Type Relation to Patient Date of Phone Billing Address Personal/Family Self [address] [place] [address] Care Teams Crane Service Technician Relationship Specialty Start Date End Date Michelle Romo MD [address] [place] [id number] PCP - General Internal Medicine 02/17/18
--- OUTSIDE RECORDS SUMMARY | 2025-01-07 08:30 | XMS_ITS | Encounter Summary ---
Author Organization [employer] Address [address] [place] [address] [address] [address] Care Team Providers Care Rail Tractor Operator Name Role Phone Michelle Romo MD Primary Care Provider +1- [phone] Reason for Visit * Reason Comments Med Refill Encounter Details Date Type Department Care Team (Late st Contact Info) Description 11/07/2023 Refill [facility] CHC MED & PEDS [address] [place] [address] Michelle Romo MD [address] [place] [address] Essential (primary) hypertension Social History Tobacco Use [...] hypertension documented in this encounter Care Teams Rail Tractor Operator Relationship Specialty Start Date End Date Michelle Romo MD [address] [place] [address] PCP - General Internal Medicine 02/17/18 documented as of this encounter
--- OUTSIDE RECORDS SUMMARY | 2025-01-07 08:30 | XMS_ITS | Encounter Summary ---
Author Organization [employer] Address [address] [place] [address] [address] [address] Care Team Providers Care Mold Stamper And Repairer Name Role Phone Michelle Romo MD Primary Care Provider +1- [phone] Reason for Visit * Reason Comments Med Refill Encounter Details Date Type Department Care Team (Late st Contact Info) Description 11/16/2023 Refill [facility] CHC MED & PEDS [address] [place] [address] Michelle Romo MD [address] [place] [address] Essential (primary) hypertension Social History Tobacco Use [...] hypertension documented in this encounter Care Teams Mold Stamper And Repairer Relationship Specialty Start Date End Date Michelle Romo MD [address] [place] [address] PCP - General Internal Medicine 02/17/18 documented as of this encounter
[2025-01-07 14:23] LABS: MANUAL DIFF FLAG NO
[2025-01-07 14:40] LABS: Hematocrit 44.8 % (42.0-52.0); Hemoglobin 14.7 g/dl (14.0-18.0); Imm Gran Abs Auto 0.01 X10*3/uL (0.00-0.03); Imm Gran Pct Auto 0.2 % (0.0-0.4); Lymphocytes Absolute Auto 1.8 X10*3/uL (1.2-4.9); Mean Corpuscular HGB Conc 32.8 g/dl (31.0-36.0); Mean Corpuscular Hemoglobin 30.6 pg (27.0-33.0); Mean Corpuscular Volume 93.3 fL (80.0-98.0); NRBC Abs Auto 0.000 X10*3/uL (0.0-0.012); NRBC Pct Auto 0.0 /100WBC (0.0-0.2); Platelet Count 217 X10*3/uL (160-400); Red Blood Count 4.80 X10*6/uL (4.60-5.80); White Blood Count 5.8 X10*3/uL (4.8-10.8)
[2025-01-07 15:06] LABS: Alanine Aminotransferase 34 U/L (0-40); Albumin Level 4.8 g/dL (3.5-5.0); Alkaline Phosphatase 89 U/L (39-117); Anion Gap 7 (12-20); Aspartate Amino Transferase 31 U/L (5-37); Blood Urea Nitrogen 16 mg/dL (9-16); Calcium 9.5 mg/dL (8.4-10.2); Carbon Dioxide 30 mmol/L (22-29); Chloride 108 mmol/L (96-108); Cholesterol 156 mg/dL (<200); Estimated Glomerular Filt Rate > 60; HDL Cholesterol 40 mg/dL (>40); Potassium 4.1 mmol/L (3.3-5.1); Sodium 141 mmol/L (135-145); Total Protein 7.5 g/dL (6.5-8.0); Triglycerides 59 mg/dL (<150)
== END 2025-01-07 08:28 | disposition home or self-care (01) ==
LOC: HO.CHCLDS 08:27
PROVIDERS: Visit Provider Internal Medicine
DX: I10 Essential (primary) hypertension (principal)
CPT/HCPCS: 36415; 80053; 80061; 84443; 85025